=== PATIENT | female | born 1990 | race Caucasian/White ===

== ENCOUNTER 2021-01-09 07:29 | Emergency (ER) | payer OTHER ==
[2021-01-09] MEDS ORDERED: HYDROmorphone 0.5 MG/0.5 ML Syringe IVPUSH ONE (07:41)
[2021-01-09] MEDS: Sodium Chloride 0.9% 10 ML Syringe FLUSH PRN ×2 (07:50→07:51)
--- NOTE | 2021-01-09 08:18 | EDM.PDOC ---
ED HPI GENERAL MEDICAL PROBLEM - General Chief Complaint: Lower Extremity Injury/Pain Stated Complaint: [facility] Time Seen by Provider: 01/09/21 07:37 Source of Information: Reports: Patient, EMS History Limitations: Reports: No Limitations - History of Present Illness INITIAL COMMENTS - FREE TEXT/NARRATIVE: The patient presents by [facility] for a fall. She was up on a fork lift and the fork left fell over. She was up 10 to 15 feet and she landed on her right side. She is in full c-spine precautions. She does admit to drinking. She has pain to her right hip and right ankle. She does not think she was knocked out. She has no headache, neck pain, chest pain, or abdominal pain. She does have pain and swelling to the right hip and right ankle. She has no allergies and she is on no medications. Onset: Sudden Duration: Minutes: Location: Reports: Lower Extremity, Right (hip and right ankle) Quality: Reports: Sharp Severity: Severe Improves with: Reports: Immobilization Worsens with: Reports: Movement Context: Reports: Trauma (Fell about 10 to 15 feet) Associated Symptoms: Reports: No Other Symptoms Right Hip Pain Score (Numeric/FACES): 10 Right Ankle Pain Score (Numeric/FACES): 10 - Related Data Allergies Allergy/AdvReac Type Severity Reaction Status Date / Time No Known Allergies Allergy Verified 01/09/21 07:41 Home Meds: Home Meds . [No Known Home Meds] 01/09/21 [History] Review of Systems - Review of Systems Review Of Systems: See Below Constitutional: Reports: No Symptoms Eyes: Reports: No Symptoms Ears: Reports: No Symptoms Nose: Reports: No Symptoms Mouth/Throat: Reports: No Symptoms Respiratory: Reports: No Symptoms Cardiovascular: Reports: No Symptoms GI/Abdominal: Reports: No Symptoms Genitourinary: Reports: No Symptoms Musculoskeletal: Reports: Other (right hip and right ankle pain and swelling) ED EXAM, GENERAL - Physical Exam Exam: See Below Exam Limited By: No Limitations General Appearance: Alert, No Apparent Distress Ears: Normal External Exam Nose: Normal Inspection Head: Atraumatic, Normocephalic Neck: Normal Inspection, Supple, Non-Tender Respiratory/Chest: No Respiratory Distress, Lungs Clear, Normal Breath Sounds Cardiovascular: Regular Rate, Rhythm, No Edema, No Murmur GI/Abdominal: Soft, Non-Tender, No Organomegaly, No Mass Back Exam: Normal Inspection Extremities: Other (Edema and pain upon palpation to the right hip with ecchymosis and abrasions. Edema and pain upon palpation to the right ankle with good sensation and pulses distally.) Course - Vital Signs Last Recorded V/S: Last Vital Signs Temp 95.4 F L 01/09/21 07:42 Pulse 73 01/09/21 07:42 Resp 18 01/09/21 07:42 BP 105/67 01/09/21 07:42 Pulse Ox 98 01/09/21 07:42 - Orders/Labs/Meds Orders: Active Orders 24 hr Category Date Time Status Cardiac Monitoring [RC] . DIRECTED Care 01/09/21 07:37 Active Peripheral IV Care [RC] . DIRECTED Care 01/09/21 07:38 Active CORONAVIRUS COVID-19 ANTONIA [MOLEC] Stat Lab 01/09/21 09:12 Received UA W/MICROSCOPIC [URIN] Stat Lab 01/09/21 07:37 Ordered Sodium Chloride 0.9% [Saline Flush] Med 01/09/21 07:37 Active 10 ml FLUSH ASDIRECTED PRN Peripheral IV Insertion Adult [OM.PC] Stat Oth 01/09/21 07:37 Ordered Medication Orders Sodium Chloride (Sodium Chloride 0.9% 10 Ml Syringe) 10 ml FLUSH ASDIRECTED PRN PRN Reason: Keep Vein Open Last Admin: 01/09/21 07:51 Dose: 10 ml Documented by: Admin: 01/09/21 07:50 Dose: 10 ml Documented by: HUMAIRA Labs: Laboratory Tests 01/09/21 01/09/21 01/09/21 Range/Units 08:00 08:00 08:00 WBC 14.16 H (3.98-10.04) K/mm3 RBC 4.07 (3.98-5.22) M/mm3 Hgb 13.1 (11.2-15.7) gm/dl Hct 39.9 (34.1-44.9) % MCV 98.0 H (79.4-94.8) fl MCH 32.2 (25.6-32.2) pg MCHC 32.8 (32.2-35.5) g/dl RDW Std Deviation 45.3 (36.4-46.3) fL Plt Count 264 (182-369) K/mm3 MPV 8.7 L (9.4-12.3) fl Neut % (Auto) 89.9 H (34.0-71.1) % Lymph % (Auto) 4.9 L (19.3-51.7) % [place] % (Auto) 4.7 (4.7-12.5) % Eos % (Auto) 0 L (0.7-5.8) Baso % (Auto) 0.1 (0.1-1.2) % Neut # (Auto) 12.72 H (1.56-6.13) K/mm3 Lymph # (Auto) 0.70 L (1.18-3.74) K/mm3 [place] # (Auto) 0.67 H (0.24-0.36) K/mm3 Eos # (Auto) 0.00 L (0.04-0.36) K/mm3 Baso # (Auto) 0.02 (0.01-0.08) K/mm3 Manual Slide Review Abnormal smear Sodium 142 (136-145) mEq/L Potassium 3.5 (3.5-5.1) mEq/L Chloride 103 (98-107) mEq/L Carbon Dioxide 25 (21-32) mEq/L Anion Gap 17.5 H (5-15) BUN 11 (7-18) mg/dL Creatinine 0.7 (0.55-1.02) mg/dL Est Cr Clr Drug Dosing 116.39 mL/min Estimated GFR (MDRD) > 60 (>60) mL/min BUN/Creatinine Ratio 15.7 (14-18) Glucose 114 H (70-99) mg/dL Calcium 8.4 L (8.5-10.1) mg/dL Total Bilirubin 0.4 (0.2-1.0) mg/dL AST 230 H (15-37) U/L ALT 153 H (14-59) U/L Alkaline Phosphatase 122 H (46-116) U/L Total Protein 7.2 (6.4-8.2) g/dl Albumin 3.7 (3.4-5.0) g/dl Globulin 3.5 gm/dL Albumin/Globulin Ratio 1.1 (1-2) Lipase 122 (73-393) U/L HCG, Qual Negative (NEGATIVE) Ethyl Alcohol 0.21 (0.00) gm% Meds: Medications Generic Name Dose Route Start Last Admin Trade Name Vincent PRN Reason Stop Dose Admin Sodium Chloride 10 ml 01/09/21 07:37 01/09/21 07:51 Sodium Chloride 0.9% 10 Ml Syringe FLUSH 10 ml ASDIRECTED PRN Administration Keep Vein Open Discontinued Medications Generic Name Dose Route Start Last Admin Trade Name Vincent PRN Reason Stop Dose Admin Hydromorphone HCl 0.5 mg 01/09/21 07:41 01/09/21 07:49 Hydromorphone 0.5 Mg/0.5 Ml Syringe IVPUSH 01/09/21 07:42 0.5 mg ONETIME ONE Administration - Re-Assessments/Exams Free Text/Narrative Re-Assessment/Exam: 01/09/21 08:20 I ordered an IV saline lock, dilaudid 0.5mg IV, labs, UA, CT of her head, cervical spine, chest, abdomen and pelvis and x-rays of her right femur, tib/fib, ankle and foot. 01/09/21 09:44 Her WBC was elevated at 14.16. Her anion gap was elevated at 17.5. Her glucose is 114. Her AST is elevated at 236. Her ALT is elevated at 153. Her alk phos was elevated at 122. Her lipase is normal. Her HCG is negative. Her ETOH is 0.21. CT of her head shows minimal portion of the posterior calvarium not included on the exam. Nothing acute is seen on noncontrast head CT study. CT of the cervical spine shows mild degenerative change. No acute fracture or subluxation is seen. CT of her chest shows mild atelectasis posteriorly within both lungs. Nothing acute is appreciated on CT study of the chest. CT of the abdomen and pelvis shows fractures within the inferior and superior pubic ramus on both sides. Fracture also noted within the right side of the sacrum. Bladder wall hematoma is seen on the right side next to one of the pelvic fractures. Fatty infiltration within the liver. No other acute abnormality is appreciated on CT study of the abdomen and pelvis. We put a ramos cath in and secured her pelvis with a binder. I also splinted h er lower right leg. I called [facility] in [place] and talked with Dr Rizo in the ER and he accepted the patient. [facility] will come fly the patient. Departure - Departure Time of Disposition: 09:50 Disposition: DC/Tfer to Acute Hospital 02 Condition: Serious Clinical Impression: Fall Qualifiers: Encounter type: initial encounter Qualified Code(s): W19.XXXA - Unspecified fall, initial encounter Right calcaneal fracture Qualifiers: Encounter type: initial encounter Calcaneus location: unspecified portion of calcaneus Fracture type: closed Fracture alignment: displaced Qualified Code(s): S92.001A - Unspecified fracture of right calcaneus, initial encounter for closed fracture Bilateral pubic rami fractures Qualifiers: Encounter type: initial encounter Fracture type: closed Qualified Code(s): S32.591A - Other specified fracture of right pubis, initial encounter for closed fracture; S32.592A - Other specified fracture of left pubis, initial encounter for closed fracture Fracture of sacrum Qualifiers: Encounter type: initial encounter Zone of sacrum fracture: unspecified portion of sacrum Fracture type: closed Qualified Code(s): S32.10XA - Unspecified fracture of sacrum, initial encounter for closed fracture - Discharge Information Forms: ED Department Discharge Sepsis Event Note (ED) - Evaluation Sepsis Screening Result: No Definite Risk - Focused Exam Vital Signs: Vital Signs Temp Pulse Resp BP Pulse Ox 01/09/21 07:42 95.4 F L 73 18 105/67 98 - My Orders Last 24 Hours: My Active Orders 01/09/21 07:37 Cardiac Monitoring [RC] . DIRECTED UA W/MICROSCOPIC [URIN] Stat Sodium Chloride 0.9% [Saline Flush] 10 ml FLUSH ASDIRECTED PRN Peripheral IV Insertion Adult [OM.PC] Stat 01/09/21 07:38 Peripheral IV Care [RC] . DIRECTED 01/09/21 09:12 CORONAVIRUS COVID-19 ANTONIA [MOLEC] Stat - Assessment/Plan Last 24 Hours: My Active Orders 01/09/21 07:37 Cardiac Monitoring [RC] . DIRECTED UA W/MICROSCOPIC [URIN] Stat Sodium Chloride 0.9% [Saline Flush] 10 ml FLUSH ASDIRECTED PRN Peripheral IV Insertion Adult [OM.PC] Stat 01/09/21 07:38 Peripheral IV Care [RC] . DIRECTED 01/09/21 09:12 CORONAVIRUS COVID-19 ANTONIA [MOLEC] Stat
--- NOTE | 2021-01-09 09:14 | CT ---
CT chest Technique: Multiple axial sections through the chest were obtained. Intravenous contrast was utilized. Reconstructed coronal and sagittal images were obtained. Comparison: No prior chest imaging is available. Findings: Mediastinum and hilar regions show no adenopathy. Thoracic aorta shows no aneurysm. No axillary adenopathy is seen. No pericardial thickening is seen. Lung window settings were obtained which show slight atelectasis posteriorly within both lungs. Lungs show no other acute parenchymal change. No pleural effusion or pneumothorax is seen. Bone window settings were reviewed which show no acute osseous abnormality within the chest. Impression: 1. Mild atelectasis posteriorly within both lungs. 2. Nothing acute is appreciated on CT study of the chest. Diagnostic code #2 CT abdomen and pelvis Technique: Multiple axial sections were obtained from above the dome of the diaphragm inferiorly through the pubic symphysis. Intravenous contrast was utilized. No oral contrast has been given. Delayed images were also obtained through the abdomen and pelvis. Reconstructed coronal and sagittal images were obtained. Comparison: No prior CT abdomen or pelvis study is available. Findings: Liver shows diminished density which is compatible with fatty infiltration. Liver shows no acute abnormality. Spleen shows no focal abnormality. Small amount of accessory splenic tissue is noted medial to the spleen. Adrenal glands show no nodule. Gallbladder contains no calcified gallstones. Kidneys show symmetric contrast enhancement with no hydronephrosis or mass. Delayed images show contrast excretion from both kidneys into the ureters and the bladder. Abdominal aorta shows no aneurysm. Pancreas shows no discrete abnormality. No retroperitoneal adenopathy or mesenteric abnormalities are seen. Appendix is seen which is normal in size. No pelvic mass is noted. There is bladder wall thickening within a portion of the right side. This is compatible with a small bladder wall hematoma. Bone window settings were reviewed. Fractures are identified within the superior pubic ramus on both sides as well as involving the inferior pubic ramus on both sides. Fracture is also noted within the right side of the sacrum. No additional osseous abnormality is appreciated. Impression: 1. Fractures within the inferior and superior pubic ramus on both sides. Fracture also noted within the right side of the sacrum. 2. Bladder wall hematoma is seen on the right side next to one of the pelvic fractures. 3. Fatty infiltration within the liver. No other acute abnormality is appreciated on CT study of the abdomen and pelvis. Diagnostic code #3
--- NOTE | 2021-01-09 09:15 | CT ---
Head CT Technique: Multiple axial sections through the brain were obtained. Reconstructed coronal and sagittal images were obtained. Comparison: No prior intracranial imaging is available. Findings: Ventricles along with basal cisterns and sulci over the convexities are within normal limits for the patient's age. No abnormal parenchymal densities are seen. No evidence of intracranial hemorrhage. No midline shift or mass-effect is seen. Bone window settings were reviewed. A small portion of the posterior skull was not included on the exam. No acute calvarial abnormality is otherwise seen. Visualized paranasal sinuses and mastoid sinuses show nothing acute. Impression: 1. Minimal portion of the posterior calvarium not included on the exam. 2. Nothing acute is seen on noncontrast head CT study. Diagnostic code #2
--- NOTE | 2021-01-09 09:18 | CT ---
CT cervical spine Technique: Multiple axial sections were obtained from above C1 inferiorly to the bottom of T2. Reconstructed coronal and sagittal images were obtained. Comparison: No prior cervical spine imaging is available. Findings: Mild to moderate disc space narrowing is noted at C3-4, C4-5, C5-6 with mild disc space narrowing at C6-7. There is mild diffuse posterior spurring seen at C3-4, C4-5 and C5-6. Apophyseal joints show nothing acute. Moderate left-sided neural foraminal stenosis is noted at C3-4. Other neural foramina are widely patent. No bony central canal stenosis is seen. No acute fracture is seen. No abnormal subluxation is seen. Reconstructed AP view shows minimal scoliosis within the spine which is most likely positional. Impression: 1. Mild degenerative change as noted above. 2. No acute fracture or subluxation is seen. Diagnostic code #2
--- NOTE | 2021-01-09 09:32 | CR ---
Right ankle: 4 views of the right ankle were obtained. Comminuted calcaneal fracture is seen. There is depression of the Boehler's angle. Ankle mortise is symmetric. No additional fracture or other bony abnormality is appreciated. Soft tissue swelling is noted. Impression: 1. Comminuted and depressed calcaneal fracture. 2. Diffuse soft tissue swelling. Diagnostic code #3
--- NOTE | 2021-01-09 09:33 | CR ---
Right tibia and fibula: AP and lateral views of the right tibia and fibula were obtained. Comparison: No previous study is available. Soft tissue swelling is seen more prominent inferiorly. Comminuted calcaneal fracture is noted. Tibia and fibula are intact with no fracture. Impression: 1. Comminuted calcaneal fracture. 2. Soft tissue swelling. 3. Nothing acute is seen within the tibia or fibula. Diagnostic code #3
--- NOTE | 2021-01-09 09:33 | CR ---
Right foot: 3 views of the right foot were obtained. Comparison: No previous is available. Comminuted calcaneal fracture is seen with depression of the Boehler's angle. No additional fracture or other bony abnormality is appreciated. Soft tissue swelling is noted. Impression: 1. Calcaneal fracture with soft tissue swelling. 2. Three-view right foot study is otherwise unremarkable. Diagnostic code #3
--- NOTE | 2021-01-09 09:34 | CR ---
Right femur: AP and lateral views of the right femur were obtained. Comparison: No prior femur study is available. Mildly displaced fractures are seen within the inferior and superior pubic ramus on the right side. Small metallic density is seen overlying the inferior right pubic ramus fracture. Inferior pubic ramus fracture is also slightly comminuted. Femur shows no acute fracture or other bony abnormality. Impression: 1. Inferior and superior pubic ramus fractures as noted above.. 2. Right femur study is otherwise unremarkable. Diagnostic code #3
== END 2021-01-09 09:20 ==
LOC: JD.ED 07:29
DX: S32.591A Other specified fracture of right pubis, initial encounter for closed fracture (principal); S32.592A Other specified fracture of left pubis, initial encounter for closed fracture; S92.001A Unspecified fracture of right calcaneus, initial encounter for closed fracture; S32.10XA Unspecified fracture of sacrum, initial encounter for closed fracture; Z20.822 Contact with and (suspected) exposure to COVID-19; V83.9XXA Unspecified occupant of special industrial vehicle injured in nontraffic accident, initial encounter
CPT/HCPCS: 36415; 70450; 71260; 72125; 73552; 73590; 73610; 73630; 74177; 80053; 80307; 83690; 84703; 85025; 87635; 96374; 99285; J1170; U0002

== ENCOUNTER 2021-08-28 09:30 | Emergency (ER) | payer SELFPAY ==
[2021-08-28] MEDS ORDERED: Ibuprofen 600 MG Tab PO ONE (12:08)
== END 2021-08-28 12:42 | disposition home or self-care (01) ==
LOC: JD.ED 09:30
DX: S82.302A Unspecified fracture of lower end of left tibia, initial encounter for closed fracture (principal); Z72.0 Tobacco use; Z86.16 Personal history of COVID-19; W01.0XXA Fall on same level from slipping, tripping and stumbling without subsequent striking against object, initial encounter
CPT/HCPCS: 29515; 73610; 73630; 99283; A9270